=== PATIENT | female | born 1960 | race Caucasian/White ===

== ENCOUNTER → 2016-12-14 | Outpatient (CLI) | payer OTHER ==
[~2016-12-14] MED LIST: CEFU1TAB36 PO; DIPH-437 PO; DOCU100C31 PO; FAMO20TA11 PO; FLM4 PO; OXYC-57 PO; POLY335019 PO
[2016-12-14 19:06] LABS: BLOOD UREA NITROGEN 17 mg/dl (7-18); BUN/CREATININE RATIO 20.9 (10-20); CALCIUM 9.1 mg/dl (8.5-10.1); CARBON DIOXIDE 25 mmol/L (21-32); CHLORIDE 106 mmol/L (98-107); CREATININE 0.82 mg/dl (0.60-1.20); GLUCOSE 82 mg/dl (70-99); PHOSPHORUS 3.8 mg/dl (2.5-4.9); POTASSIUM 3.9 mmol/L (3.5-5.1); SODIUM 142 mmol/L (136-145)
== END | disposition home or self-care (01) ==
LOC: C.LAB1850 17:06
PROVIDERS: ATTEND Internal Medicine Nephrology
DX: E55.9 Vitamin D deficiency, unspecified (principal)

== ENCOUNTER → 2017-03-21 | Outpatient (CLI) | payer OTHER ==
[~2017-03-21] MED LIST changes: -OXYC-57 PO
[2017-03-21 16:51] LABS: BLOOD UREA NITROGEN 13 mg/dl (7-18); BUN/CREATININE RATIO 16.9 (10-20); CALCIUM 8.8 mg/dl (8.5-10.1); CARBON DIOXIDE 27 mmol/L (21-32); CHLORIDE 109 mmol/L (98-107); CREATININE 0.79 mg/dl (0.60-1.20); GLUCOSE 96 mg/dl (70-99); PHOSPHORUS 2.8 mg/dl (2.5-4.9); SODIUM 143 mmol/L (136-145)
== END | disposition home or self-care (01) ==
LOC: C.LAB1850 15:26
PROVIDERS: ATTEND Internal Medicine Nephrology
DX: E21.3 Hyperparathyroidism, unspecified (principal)

== ENCOUNTER → 2017-03-30 | Outpatient (CLI) | payer OTHER ==
--- NOTE | 2017-03-30 16:27 | DIAGNOSTIC IMAGING REPORT ---
KUB CLINICAL HISTORY: N13.2 Hydronephrosis with renal and ureteral calculous obstruct nephrocalcinosis COMPARISON STUDY: 09/23/2016 FINDINGS: Interval removal of the right ureteral stent. Several small residual fragments overlying the mid to lower aspect right kidney measuring no more than 2 mm. Several left renal calcifications unchanged from the prior study. No significant paravertebral calcifications. Unchanging pelvic vascular calcifications. IMPRESSION: 1. Interval removal of the right ureteral stent. 2. Bilateral nephrocalcinosis unchanged involving the left kidney and showing interval progressive fragmentation at the right kidney level. Electronically signed by: Franklin Fernandez M.D. 03/30/2017 4:25 PM Dictated Date/Time: 03/30/2017 4:23 PM
== END | disposition home or self-care (01) ==
LOC: C.RAD1850 16:11
PROVIDERS: ATTEND Urology
DX: N13.2 Hydronephrosis with renal and ureteral calculous obstruction (principal); E83.59 Other disorders of calcium metabolism; N29 Other disorders of kidney and ureter in diseases classified elsewhere

== ENCOUNTER → 2017-09-20 | Outpatient (CLI) | payer OTHER ==
[2017-09-20 17:41] LABS: BLOOD UREA NITROGEN 16 mg/dl (7-18); BUN/CREATININE RATIO 20.4 (10-20); CALCIUM 8.8 mg/dl (8.5-10.1); CARBON DIOXIDE 28 mmol/L (21-32); CHLORIDE 105 mmol/L (98-107); GLUCOSE 76 mg/dl (70-99); MAGNESIUM 2.3 mg/dl (1.8-2.4); POTASSIUM 3.8 mmol/L (3.5-5.1); SODIUM 138 mmol/L (136-145)
[2017-09-20 17:44] LABS: PHOSPHORUS 3.4 mg/dl (2.5-4.9)
== END | disposition home or self-care (01) ==
LOC: C.LAB1850 16:22
PROVIDERS: ATTEND Internal Medicine Nephrology
DX: E21.3 Hyperparathyroidism, unspecified (principal)

== ENCOUNTER → 2017-10-13 | Outpatient (CLI) | payer OTHER ==
--- NOTE | 2017-10-13 12:31 | DIAGNOSTIC IMAGING REPORT ---
KUB HISTORY: Follow-up study in a patient with nephrolithiasis N20.0 [id number] COMPARISON: KUB 03/30/2017, 09/23/2016 and 09/02/2016. FINDINGS: The bowel gas pattern is non-obstructive. There is no organomegaly. Bilateral nephrolithiasis appears generally unchanged with largest calculus within the region of the superior pole left kidney, 4 mm. No definite ureteral calculi identified. Calcifications of the pelvis are again seen suggesting phleboliths. Surgical clips of the right upper abdomen suggest prior cholecystectomy. No pneumoperitoneum or pneumatosis. No fracture. IMPRESSION: Stable appearance of bilateral nephrolithiasis without ureteral calculi identified. Electronically signed by: Erickson Bishop M.D. 10/13/2017 12:30 PM Dictated Date/Time: 10/13/2017 12:27 PM
== END | disposition home or self-care (01) ==
LOC: C.RAD1850 11:27
PROVIDERS: ATTEND Urology
DX: N20.0 Calculus of kidney (principal)